=== PATIENT | female | born 1950 | race Caucasian/White ===

== ENCOUNTER 2021-04-28 17:40 | Inpatient (IN) ==
[2021-04-28] MEDS ORDERED: methylPREDNISolone 125 mg 2 ML VIAL IV ONE (18:06)
[2021-04-28] MEDS ORDERED: NS 0.9% 1000 ml BAG 1,000 ML IV ONE (18:06)
[2021-04-28] MEDS ORDERED: Albuterol/Ipratropium NEB.SOL (2.5/0.5 MG) 3 ML NEB.SOLN INH ONE (18:06)
[2021-04-28 18:16] LABS: ABS Basophils 0.1 10^3/ul (0-0.2); ABS Eosinophils 0.2 10^3/ul (0-0.6); ABS Lymphocytes 2.5 10^3/ul (1.0-4.8); ABS Monocytes 0.9 10^3/ul (0-0.8); ABS Neutrophils 8.5 10^3/ul (1.5-7.7); Eosinophil % 1.4 %; Hematocrit 40 % (35-47); Hemoglobin 13.5 g/dL (12.0-16.0); Lymphocyte % 20.6 %; Mean Corpuscular HGB Conc 33 g/dL (31-36); Mean Corpuscular Hemoglobin 28 pg (27-31); Mean Corpuscular Volume 85 fL (80-97); Mean Platelet Volume 6.9 fL (7.4-10.4); Platelet Count 388 10^3/uL (150-450); Red Blood Count 4.78 10^6 /uL (3.70-4.87); Red Cell Distribution Width 13 % (10-15); White Blood Count 12.2 10^3/uL (3.5-10.8)
[2021-04-28] MEDS ORDERED: Labetalol IV 5 MG/ML 20 ml VIAL IV PUSH ONE ×3 (18:19→20:14)
[2021-04-28 18:34] LABS: Albumin/Globulin Ratio 1.4 (1-3); Calcium 9.2 mg/dL (8.6-10.3); EGFR African American 104.4 (>60); EGFR Non-African American 86.3 (>60); Globulin 2.9 g/dL (2-4); Potassium 4.1 mmol/L (3.5-5.0); Total Bilirubin 0.3 mg/dL (0.2-1.0); Total Protein 6.9 g/dL (6.4-8.9)
[2021-04-28 18:35] LABS: Troponin I 0.01 ng/mL (<0.03)
[2021-04-28] MEDS ORDERED: Iohexol 350 (CONTRAST) 500 ML MDV IV ONE (19:06)
[2021-04-28] MEDS ORDERED: Enoxaparin 40 MG/0.4 ML SYR SUBCUT SCH (21:00)
[2021-04-28] MEDS ORDERED: Albuterol/Ipratropium NEB.SOL (2.5/0.5 MG) 3 ML NEB.SOLN INH PRN (21:24)
[2021-04-28] MEDS ORDERED: Labetalol IV 5 MG/ML 20 ml VIAL IV PUSH PRN (21:25)
[2021-04-28 22:49] LABS: Activated Partial Thrombo Time 27.6 seconds (26.0-38.0); INR 1.04 (0.82-1.09)
[2021-04-28 22:58] LABS: Troponin I 0.19 ng/mL (<0.03)
[2021-04-28] MEDS ORDERED: Azithromycin 500 mg/250 mL NS IVPB ONE (23:00)
[2021-04-29 02:18] LABS: Troponin I 0.21 ng/mL (<0.03)
[2021-04-29] MEDS: methylPREDNISolone SOD 40 mg/ml 1 ml VIAL IV SCH ×3 (03:59→20:01)
[2021-04-29] MEDS ORDERED: Enoxaparin 40 MG/0.4 ML SYR SUBCUT SCH (04:00)
[2021-04-29 05:41] LABS: ABS Lymphocytes 0.7 10^3/ul (1.0-4.8); ABS Monocytes 0.1 10^3/ul (0-0.8); ABS Neutrophils 5.3 10^3/ul (1.5-7.7); Hematocrit 38 % (35-47); Hemoglobin 13.1 g/dL (12.0-16.0); Lymphocyte % 10.8 %; Mean Corpuscular HGB Conc 34 g/dL (31-36); Mean Corpuscular Hemoglobin 29 pg (27-31); Mean Corpuscular Volume 85 fL (80-97); Mean Platelet Volume 7.1 fL (7.4-10.4); Platelet Count 368 10^3/uL (150-450); Red Cell Distribution Width 13 % (10-15); White Blood Count 6.1 10^3/uL (3.5-10.8)
[2021-04-29 05:56] LABS: Anion Gap 6 mmol/L (2-11); CO2 Carbon Dioxide 29 mmol/L (22-32); Calcium 8.7 mg/dL (8.6-10.3); Chloride 103 mmol/L (101-111); Potassium 3.9 mmol/L (3.5-5.0); Sodium 138 mmol/L (135-145)
[2021-04-29 06:01] LABS: Blood Urea Nitrogen 8 mg/dL (6-24); EGFR African American 123.3 (>60); EGFR Non-African American 101.9 (>60); Glucose 172 mg/dL (70-100)
[2021-04-29 06:02] LABS: Troponin I 0.22 ng/mL (<0.03)
[2021-04-29 10:19] LABS: Troponin I 0.19 ng/mL (<0.03)
[2021-04-29] MEDS ORDERED: guaiFENesin 100 mg/5 ml LIQ unit dose cup PO PRN (12:30)
[2021-04-30] MEDS: Azithromycin 500 mg/250 ml NS 500 MG/250 ML BAG IVPB SCH (02:49)
[2021-04-30] MEDS: methylPREDNISolone SOD 40 mg/ml 1 ml VIAL IV SCH ×3 (03:59→20:50)
[2021-04-30 06:40] LABS: ABS Lymphocytes 1.1 10^3/ul (1.0-4.8); ABS Monocytes 0.3 10^3/ul (0-0.8); ABS Neutrophils 14.8 10^3/ul (1.5-7.7); Hematocrit 39 % (35-47); Hemoglobin 12.9 g/dL (12.0-16.0); Lymphocyte % 7.1 %; Mean Corpuscular HGB Conc 33 g/dL (31-36); Mean Corpuscular Hemoglobin 28 pg (27-31); Mean Corpuscular Volume 86 fL (80-97); Mean Platelet Volume 7.1 fL (7.4-10.4); Platelet Count 366 10^3/uL (150-450); Red Blood Count 4.55 10^6 /uL (3.70-4.87); Red Cell Distribution Width 13 % (10-15); White Blood Count 16.2 10^3/uL (3.5-10.8)
[2021-04-30 06:54] LABS: Calcium 9.4 mg/dL (8.6-10.3); EGFR African American 97.6 (>60); EGFR Non-African American 80.7 (>60); Potassium 4.2 mmol/L (3.5-5.0)
[2021-04-30] MEDS: Enoxaparin 30 MG/0.3 ML SYR SUBCUT SCH (07:26)
[2021-04-30] MEDS ORDERED: Enoxaparin 40 MG/0.4 ML SYR SUBCUT SCH (09:00)
[2021-04-30 13:34] LABS: Magnesium 2.1 mg/dL (1.9-2.7)
[2021-05-01] MEDS: Azithromycin 500 mg/250 ml NS 500 MG/250 ML BAG IVPB SCH (03:23)
[2021-05-01] MEDS: methylPREDNISolone SOD 40 mg/ml 1 ml VIAL IV SCH ×2 (04:49→14:27)
[2021-05-01] MEDS ORDERED: Lactated Ringers 1000 ml BAG 1,000 ML IV SCH (06:00)
[2021-05-01] MEDS ORDERED: Buffered Lidocaine 1% SYRIN 1 ml INTRADERM ONE (06:00)
[2021-05-01 06:02] LABS: ABS Lymphocytes 0.7 10^3/ul (1.0-4.8); ABS Monocytes 0.3 10^3/ul (0-0.8); Hematocrit 37 % (35-47); Hemoglobin 12.2 g/dL (12.0-16.0); Lymphocyte % 4.7 %; Mean Corpuscular HGB Conc 33 g/dL (31-36); Mean Corpuscular Hemoglobin 28 pg (27-31); Mean Corpuscular Volume 86 fL (80-97); Platelet Count 333 10^3/uL (150-450); Red Blood Count 4.34 10^6 /uL (3.70-4.87); Red Cell Distribution Width 13 % (10-15)
[2021-05-01 06:07] LABS: INR 1.03 (0.82-1.09)
[2021-05-01 07:02] LABS: Calcium 8.9 mg/dL (8.6-10.3); EGFR African American 102.6 (>60); EGFR Non-African American 84.8 (>60); Potassium 4.1 mmol/L (3.5-5.0)
[2021-05-01] MEDS ORDERED: Midazolam 2 mg/2 ml VIAL 1 mg/ml 2 ml VIAL (2 mg) ONE (07:13)
[2021-05-01] MEDS ORDERED: Lidocaine 2% PF 5 ML VIAL ONE (07:13)
[2021-05-01] MEDS ORDERED: fentaNYL 100 mcg/2 ml 50 MCG/ML VIAL ONE (07:13)
[2021-05-01] MEDS ORDERED: Propofol 10 MG/ML 20 ML BTL ONE (07:13)
[2021-05-01] MEDS ORDERED: Rocuronium 50 mg VIAL 10 mg/ml 5 ml VIAL (50 mg) ONE (07:14)
[2021-05-01] MEDS ORDERED: Benzocaine/Butamben/Tetracain (CETACAINE - SINGLE USE) 5 gm TOPICAL ONE (07:17)
[2021-05-01] MEDS ORDERED: EPHEDrine (Pressors) 50 MG/ML VIAL ONE (08:00)
[2021-05-01] MEDS ORDERED: Ondansetron 4 mg VIAL 2 MG/ML 2 ml VIAL ONE (08:00)
[2021-05-01] MEDS ORDERED: Dexamethasone IV 4 MG/ML VIAL 1 ml VIAL ONE (08:00)
[2021-05-01] MEDS ORDERED: Prochlorperazine 5 mg/ml 2 ml VIAL (10 mg) IV PRN (08:31)
[2021-05-01] MEDS ORDERED: diPHENhydraMINE IV 50 MG/ML 1 ml VIAL (BENADRYL) IV PRN (08:31)
[2021-05-01] MEDS ORDERED: Naloxone 0.4 mg VIAL 0.4 mg/ml 1 ml VIAL IV PRN (08:31)
[2021-05-01] MEDS: Enoxaparin 30 MG/0.3 ML SYR SUBCUT SCH (10:02)
[2021-05-01 16:40] VITALS: BP 118/78
== END 2021-05-01 17:14 | disposition home or self-care (01) | DRG 181 ==
LOC: ED 17:40 → MEDTELE 04-29 00:09
PROVIDERS: ADMIT Internal Medicine; ATTEND Student in an Organized Health Care Education/Training Program

== ENCOUNTER 2021-05-27 11:05 | Inpatient (IN) ==
[2021-05-27] MEDS ORDERED: NS 0.9% 1000 ml BAG 1,000 ML IV ONE (11:27)
[2021-05-27] MEDS ORDERED: Iohexol 350 (CONTRAST) 500 ML MDV IV ONE (11:52)
[2021-05-27 12:19] LABS: ABS Lymphocytes 1.5 10^3/ul (1.0-4.8); ABS Monocytes 0.9 10^3/ul (0-0.8); ABS Neutrophils 7.8 10^3/ul (1.5-7.7); Eosinophil % 0.1 %; Hematocrit 45 % (35-47); Hemoglobin 14.8 g/dL (12.0-16.0); Lymphocyte % 14.7 %; Mean Corpuscular HGB Conc 33 g/dL (31-36); Mean Corpuscular Hemoglobin 29 pg (27-31); Mean Corpuscular Volume 87 fL (80-97); Mean Platelet Volume 6.7 fL (7.4-10.4); Platelet Count 436 10^3/uL (150-450); Red Blood Count 5.16 10^6 /uL (3.70-4.87); Red Cell Distribution Width 14 % (10-15); White Blood Count 10.2 10^3/uL (3.5-10.8)
[2021-05-27 12:37] LABS: Albumin 3.4 g/dL (3.2-5.2); Albumin/Globulin Ratio 1.7 (1-3); Calcium 9.2 mg/dL (8.6-10.3); EGFR African American 108.1 (>60); EGFR Non-African American 89.3 (>60); Potassium 3.4 mmol/L (3.5-5.0); Total Bilirubin 0.4 mg/dL (0.2-1.0); Total Protein 5.4 g/dL (6.4-8.9)
[2021-05-27 12:38] LABS: Troponin I 0.01 ng/mL (<0.03)
[2021-05-27] MEDS ORDERED: methylPREDNISolone 125 mg 2 ML VIAL IV ONE (17:03)
[2021-05-27] MEDS ORDERED: Potassium Chlor 20 meq TAB.ER PO ONE (17:04)
[2021-05-27] MEDS ORDERED: Albuterol/Ipratropium NEB.SOL (2.5/0.5 MG) 3 ML NEB.SOLN INH SCH (18:00)
[2021-05-27] MEDS: cefTRIAXone 1 gm/50 mL NS BAG 1 GM/50 ML BAG IVPB SCH (18:26)
[2021-05-27 18:57] LABS: Influenza A Molecular Negative (Negative); Influenza B Molecular Negative (Negative)
[2021-05-27] MEDS ORDERED: Multivitamins ADULT w/MIN LIQ 15 ML UDC PO SCH (19:00)
[2021-05-27] MEDS ORDERED: Vancomycin per Pharmacy 1 EA NOTE FOLLOW UP PRN (19:03)
[2021-05-27] MEDS: Albuterol/Ipratropium NEB.SOL (2.5/0.5 MG) 3 ML NEB.SOLN INH SCH (19:14)
[2021-05-27] MEDS: Enoxaparin 30 MG/0.3 ML SYR SUBCUT SCH (21:33)
[2021-05-27] MEDS: DOXYcycline 100 MG in NS 0.9% 250 ml 250 ML IVPB SCH (21:33)
[2021-05-27] MEDS: Pantoprazole VIAL 40 MG VIAL IV SCH (21:34)
[2021-05-28] MEDS: Albuterol/Ipratropium NEB.SOL (2.5/0.5 MG) 3 ML NEB.SOLN INH SCH ×4 (00:57→19:12)
[2021-05-28] MEDS: methylPREDNISolone SOD 40 mg/ml 1 ml VIAL IV SCH ×3 (02:06→17:36)
[2021-05-28 08:39] LABS: ABS Lymphocytes 0.6 10^3/ul (1.0-4.8); ABS Monocytes 0.1 10^3/ul (0-0.8); ABS Neutrophils 6.8 10^3/ul (1.5-7.7); Hematocrit 46 % (35-47); Hemoglobin 15.1 g/dL (12.0-16.0); Lymphocyte % 7.4 %; Mean Corpuscular HGB Conc 33 g/dL (31-36); Mean Corpuscular Hemoglobin 29 pg (27-31); Mean Corpuscular Volume 87 fL (80-97); Mean Platelet Volume 7.2 fL (7.4-10.4); Nucleated Red Blood Cells % 0.1; Platelet Count 392 10^3/uL (150-450); Red Blood Count 5.26 10^6 /uL (3.70-4.87); Red Cell Distribution Width 14 % (10-15); White Blood Count 7.5 10^3/uL (3.5-10.8)
[2021-05-28] MEDS: Multivitamins/Minerals TAB PO SCH (08:48)
[2021-05-28] MEDS: Pantoprazole VIAL 40 MG VIAL IV SCH ×2 (08:48→21:49)
[2021-05-28] MEDS: DOXYcycline 100 MG in NS 0.9% 250 ml 250 ML IVPB SCH ×2 (08:50→21:49)
[2021-05-28] MEDS ORDERED: TIOTROPIUM BROMIDE INH SCH (09:00)
[2021-05-28] MEDS ORDERED: ACTUATION MIST INH SCH (09:00)
[2021-05-28 09:01] LABS: Calcium 9.4 mg/dL (8.6-10.3); EGFR African American 110.1 (>60); Phosphorus 4.3 mg/dL (2.5-5.0)
[2021-05-28 10:24] LABS: PCO2 Arterial 41 mmHg (35-45); PO2 Arterial 61 mmHg (80-100)
[2021-05-28] MEDS: cefTRIAXone 1 gm/50 mL NS BAG 1 GM/50 ML BAG IVPB SCH (17:35)
[2021-05-28] MEDS: Enoxaparin 30 MG/0.3 ML SYR SUBCUT SCH (21:49)
[2021-05-29] MEDS: methylPREDNISolone SOD 40 mg/ml 1 ml VIAL IV SCH ×3 (01:05→20:49)
[2021-05-29] MEDS: Albuterol/Ipratropium NEB.SOL (2.5/0.5 MG) 3 ML NEB.SOLN INH SCH ×4 (01:22→20:30)
[2021-05-29 05:41] LABS: ABS Basophils 0.1 10^3/ul (0-0.2); ABS Lymphocytes 0.5 10^3/ul (1.0-4.8); ABS Monocytes 0.4 10^3/ul (0-0.8); ABS Neutrophils 17.2 10^3/ul (1.5-7.7); Hematocrit 44 % (35-47); Hemoglobin 14.6 g/dL (12.0-16.0); Lymphocyte % 2.7 %; Mean Corpuscular HGB Conc 33 g/dL (31-36); Mean Corpuscular Hemoglobin 29 pg (27-31); Mean Corpuscular Volume 87 fL (80-97); Mean Platelet Volume 6.8 fL (7.4-10.4); Platelet Count 417 10^3/uL (150-450); Red Cell Distribution Width 14 % (10-15); White Blood Count 18.2 10^3/uL (3.5-10.8)
[2021-05-29 06:02] LABS: Calcium 9.2 mg/dL (8.6-10.3); EGFR African American 114.2 (>60); EGFR Non-African American 94.4 (>60); Magnesium 1.9 mg/dL (1.9-2.7); Phosphorus 3.2 mg/dL (2.5-5.0); Potassium 3.6 mmol/L (3.5-5.0)
[2021-05-29] MEDS ORDERED: Potassium Chlor 20 meq TAB.ER PO ONE (07:51)
[2021-05-29] MEDS: Pantoprazole VIAL 40 MG VIAL IV SCH ×2 (08:10→20:49)
[2021-05-29] MEDS: Multivitamins/Minerals TAB PO SCH (08:10)
[2021-05-29] MEDS: DOXYcycline 100 MG in NS 0.9% 250 ml 250 ML IVPB SCH ×2 (09:23→20:48)
[2021-05-29] MEDS ORDERED: Iohexol 300 (CONTRAST) 10 ML SDV IV ONE (11:11)
[2021-05-29] MEDS: cefTRIAXone 1 gm/50 mL NS BAG 1 GM/50 ML BAG IVPB SCH (17:24)
[2021-05-29] MEDS: Enoxaparin 30 MG/0.3 ML SYR SUBCUT SCH (20:48)
[2021-05-30] MEDS: Albuterol/Ipratropium NEB.SOL (2.5/0.5 MG) 3 ML NEB.SOLN INH SCH ×4 (00:50→20:16)
[2021-05-30 05:58] LABS: ABS Lymphocytes 0.3 10^3/ul (1.0-4.8); ABS Monocytes 0.5 10^3/ul (0-0.8); ABS Neutrophils 14.5 10^3/ul (1.5-7.7); Hematocrit 42 % (35-47); Hemoglobin 13.8 g/dL (12.0-16.0); Lymphocyte % 2.1 %; Mean Corpuscular HGB Conc 33 g/dL (31-36); Mean Corpuscular Hemoglobin 29 pg (27-31); Mean Corpuscular Volume 87 fL (80-97); Platelet Count 384 10^3/uL (150-450); Red Blood Count 4.83 10^6 /uL (3.70-4.87); Red Cell Distribution Width 15 % (10-15); White Blood Count 15.4 10^3/uL (3.5-10.8)
[2021-05-30 06:15] LABS: Calcium 8.7 mg/dL (8.6-10.3); EGFR African American 131.1 (>60); EGFR Non-African American 108.3 (>60); Magnesium 1.9 mg/dL (1.9-2.7); Phosphorus 2.3 mg/dL (2.5-5.0); Potassium 3.6 mmol/L (3.5-5.0)
[2021-05-30] MEDS: Pantoprazole VIAL 40 MG VIAL IV SCH ×2 (10:11→20:04)
[2021-05-30] MEDS: methylPREDNISolone SOD 40 mg/ml 1 ml VIAL IV SCH ×2 (10:11→20:03)
[2021-05-30] MEDS: DOXYcycline 100 MG in NS 0.9% 250 ml 250 ML IVPB SCH ×2 (10:15→21:17)
[2021-05-30] MEDS: Multivitamins/Minerals TAB PO SCH (10:15)
[2021-05-30] MEDS: cefTRIAXone 1 gm/50 mL NS BAG 1 GM/50 ML BAG IVPB SCH (17:57)
[2021-05-30] MEDS: Enoxaparin 30 MG/0.3 ML SYR SUBCUT SCH (20:04)
[2021-05-31] MEDS: Albuterol/Ipratropium NEB.SOL (2.5/0.5 MG) 3 ML NEB.SOLN INH SCH ×4 (00:29→17:33)
[2021-05-31 05:34] LABS: ABS Lymphocytes 0.4 10^3/ul (1.0-4.8); ABS Monocytes 0.5 10^3/ul (0-0.8); ABS Neutrophils 12.8 10^3/ul (1.5-7.7); Hematocrit 43 % (35-47); Hemoglobin 14.2 g/dL (12.0-16.0); Lymphocyte % 3.1 %; Mean Corpuscular HGB Conc 33 g/dL (31-36); Mean Corpuscular Hemoglobin 29 pg (27-31); Mean Corpuscular Volume 87 fL (80-97); Mean Platelet Volume 7.3 fL (7.4-10.4); Platelet Count 336 10^3/uL (150-450); Red Blood Count 4.97 10^6 /uL (3.70-4.87); Red Cell Distribution Width 14 % (10-15); White Blood Count 13.8 10^3/uL (3.5-10.8)
[2021-05-31 05:55] LABS: Calcium 9.2 mg/dL (8.6-10.3); EGFR African American 139.9 (>60); EGFR Non-African American 115.6 (>60); Magnesium 1.9 mg/dL (1.9-2.7); Phosphorus 2.2 mg/dL (2.5-5.0); Potassium 3.7 mmol/L (3.5-5.0)
[2021-05-31] MEDS: DOXYcycline 100 MG in NS 0.9% 250 ml 250 ML IVPB SCH ×2 (09:14→21:32)
[2021-05-31] MEDS: Pantoprazole VIAL 40 MG VIAL IV SCH ×2 (09:15→21:31)
[2021-05-31] MEDS: methylPREDNISolone SOD 40 mg/ml 1 ml VIAL IV SCH ×2 (09:15→21:31)
[2021-05-31] MEDS: Multivitamins/Minerals TAB PO SCH (09:17)
[2021-05-31] MEDS: cefTRIAXone 1 gm/50 mL NS BAG 1 GM/50 ML BAG IVPB SCH (17:26)
[2021-05-31] MEDS: Enoxaparin 30 MG/0.3 ML SYR SUBCUT SCH (21:31)
[2021-06-01] MEDS: Albuterol/Ipratropium NEB.SOL (2.5/0.5 MG) 3 ML NEB.SOLN INH SCH ×4 (01:26→19:35)
[2021-06-01 06:53] LABS: ABS Lymphocytes 0.4 10^3/ul (1.0-4.8); ABS Monocytes 0.5 10^3/ul (0-0.8); ABS Neutrophils 13.1 10^3/ul (1.5-7.7); Hematocrit 46 % (35-47); Hemoglobin 15.2 g/dL (12.0-16.0); Lymphocyte % 2.9 %; Mean Corpuscular HGB Conc 33 g/dL (31-36); Mean Corpuscular Hemoglobin 29 pg (27-31); Mean Corpuscular Volume 87 fL (80-97); Mean Platelet Volume 7.3 fL (7.4-10.4); Platelet Count 346 10^3/uL (150-450); Red Blood Count 5.28 10^6 /uL (3.70-4.87); Red Cell Distribution Width 14 % (10-15); White Blood Count 14.1 10^3/uL (3.5-10.8)
[2021-06-01 07:12] LABS: Calcium 9.1 mg/dL (8.6-10.3); EGFR Non-African American 118.2 (>60); Phosphorus 2.9 mg/dL (2.5-5.0); Potassium 3.8 mmol/L (3.5-5.0)
[2021-06-01] MEDS: Pantoprazole VIAL 40 MG VIAL IV SCH ×2 (08:37→21:05)
[2021-06-01] MEDS: Multivitamins/Minerals TAB PO SCH (08:37)
[2021-06-01] MEDS: methylPREDNISolone SOD 40 mg/ml 1 ml VIAL IV SCH (08:37)
[2021-06-01] MEDS: DOXYcycline 100 MG in NS 0.9% 250 ml 250 ML IVPB SCH ×2 (08:45→21:05)
[2021-06-01] MEDS: cefTRIAXone 1 gm/50 mL NS BAG 1 GM/50 ML BAG IVPB SCH (18:08)
[2021-06-01] MEDS: Enoxaparin 30 MG/0.3 ML SYR SUBCUT SCH (21:05)
[2021-06-02] MEDS: Albuterol/Ipratropium NEB.SOL (2.5/0.5 MG) 3 ML NEB.SOLN INH SCH ×4 (01:37→18:27)
[2021-06-02 05:43] LABS: Hematocrit 49 % (35-47); Hemoglobin 16.2 g/dL (12.0-16.0); Mean Corpuscular HGB Conc 33 g/dL (31-36); Mean Corpuscular Hemoglobin 30 pg (27-31); Mean Corpuscular Volume 88 fL (80-97); Mean Platelet Volume 7.2 fL (7.4-10.4); Platelet Count 290 10^3/uL (150-450); Red Cell Distribution Width 14 % (10-15); White Blood Count 18.9 10^3/uL (3.5-10.8)
[2021-06-02 06:02] LABS: Albumin 3.6 g/dL (3.2-5.2); Albumin/Globulin Ratio 1.6 (1-3); Calcium 9.2 mg/dL (8.6-10.3); EGFR African American 165.3 (>60); EGFR Non-African American 136.6 (>60); Globulin 2.2 g/dL (2-4); Potassium 3.6 mmol/L (3.5-5.0); Total Bilirubin 0.5 mg/dL (0.2-1.0); Total Protein 5.8 g/dL (6.4-8.9)
[2021-06-02 06:06] LABS: ABS Lymphocytes 0.9 10^3/ul (1.0-4.8); Eosinophil % 0.1 %; Lymphocyte % 4.9 %
[2021-06-02] MEDS: DOXYcycline 100 MG in NS 0.9% 250 ml 250 ML IVPB SCH ×2 (09:46→20:11)
[2021-06-02] MEDS: methylPREDNISolone SOD 40 mg/ml 1 ml VIAL IV SCH (09:47)
[2021-06-02] MEDS: Multivitamins/Minerals TAB PO SCH (09:47)
[2021-06-02] MEDS: Pantoprazole VIAL 40 MG VIAL IV SCH ×2 (09:47→20:33)
[2021-06-02] MEDS: cefTRIAXone 1 gm/50 mL NS BAG 1 GM/50 ML BAG IVPB SCH (17:17)
[2021-06-02] MEDS: Enoxaparin 30 MG/0.3 ML SYR SUBCUT SCH (20:10)
[2021-06-03] MEDS: Albuterol/Ipratropium NEB.SOL (2.5/0.5 MG) 3 ML NEB.SOLN INH SCH ×4 (00:29→19:33)
[2021-06-03] MEDS: Pantoprazole VIAL 40 MG VIAL IV SCH ×2 (09:12→20:25)
[2021-06-03] MEDS: Multivitamins/Minerals TAB PO SCH (09:12)
[2021-06-03] MEDS: methylPREDNISolone SOD 40 mg/ml 1 ml VIAL IV SCH (09:12)
[2021-06-03] MEDS: DOXYcycline 100 MG in NS 0.9% 250 ml 250 ML IVPB SCH (09:12)
[2021-06-03] MEDS: Enoxaparin 30 MG/0.3 ML SYR SUBCUT SCH (20:25)
[2021-06-04] MEDS: Albuterol/Ipratropium NEB.SOL (2.5/0.5 MG) 3 ML NEB.SOLN INH SCH ×4 (00:40→19:26)
[2021-06-04] MEDS: methylPREDNISolone SOD 40 mg/ml 1 ml VIAL IV SCH (08:30)
[2021-06-04] MEDS: Multivitamins/Minerals TAB PO SCH (08:30)
[2021-06-04] MEDS: Pantoprazole VIAL 40 MG VIAL IV SCH ×2 (08:30→20:20)
[2021-06-04] MEDS: Enoxaparin 30 MG/0.3 ML SYR SUBCUT SCH (20:20)
[2021-06-05] MEDS: Albuterol/Ipratropium NEB.SOL (2.5/0.5 MG) 3 ML NEB.SOLN INH SCH ×2 (00:32→07:26)
[2021-06-05] MEDS: Pantoprazole VIAL 40 MG VIAL IV SCH (08:56)
[2021-06-05] MEDS: methylPREDNISolone SOD 40 mg/ml 1 ml VIAL IV SCH (08:57)
[2021-06-05] MEDS: Multivitamins/Minerals TAB PO SCH (08:57)
[2021-06-05 13:00] LABS: ABS Lymphocytes 0.3 10^3/ul (1.0-4.8); ABS Monocytes 0.3 10^3/ul (0-0.8); ABS Neutrophils 16.7 10^3/ul (1.5-7.7); Eosinophil % 0.3 %; Hematocrit 44 % (35-47); Hemoglobin 14.3 g/dL (12.0-16.0); Lymphocyte % 1.5 %; Mean Corpuscular HGB Conc 32 g/dL (31-36); Mean Corpuscular Hemoglobin 28 pg (27-31); Mean Corpuscular Volume 88 fL (80-97); Mean Platelet Volume 7.4 fL (7.4-10.4); Platelet Count 264 10^3/uL (150-450); Red Blood Count 5.04 10^6 /uL (3.70-4.87); Red Cell Distribution Width 14 % (10-15); White Blood Count 17.3 10^3/uL (3.5-10.8)
[2021-06-05 13:16] LABS: Albumin 3.5 g/dL (3.2-5.2); Albumin/Globulin Ratio 1.8 (1-3); Calcium 8.8 mg/dL (8.6-10.3); EGFR African American 108.1 (>60); EGFR Non-African American 89.3 (>60); Potassium 4.2 mmol/L (3.5-5.0); Total Bilirubin 0.4 mg/dL (0.2-1.0); Total Protein 5.5 g/dL (6.4-8.9)
[2021-06-05] MEDS: Enoxaparin 30 MG/0.3 ML SYR SUBCUT SCH (20:09)
[2021-06-05] MEDS: Albuterol/Ipratropium NEB.SOL (2.5/0.5 MG) 3 ML NEB.SOLN INH PRN (23:31)
[2021-06-06 09:04] LABS: Hematocrit 43 % (35-47); Hemoglobin 13.9 g/dL (12.0-16.0); Mean Corpuscular HGB Conc 32 g/dL (31-36); Mean Corpuscular Hemoglobin 28 pg (27-31); Mean Corpuscular Volume 87 fL (80-97); Mean Platelet Volume 7.2 fL (7.4-10.4); Platelet Count 229 10^3/uL (150-450); Red Blood Count 4.92 10^6 /uL (3.70-4.87); Red Cell Distribution Width 14 % (10-15); White Blood Count 13.9 10^3/uL (3.5-10.8)
[2021-06-06 09:20] LABS: Albumin 3.4 g/dL (3.2-5.2); Albumin/Globulin Ratio 1.8 (1-3); EGFR African American 161.1 (>60); EGFR Non-African American 133.2 (>60); Globulin 1.9 g/dL (2-4); Potassium 3.8 mmol/L (3.5-5.0); Total Bilirubin 0.5 mg/dL (0.2-1.0); Total Protein 5.3 g/dL (6.4-8.9)
[2021-06-06] MEDS: Multivitamins/Minerals TAB PO SCH (09:37)
[2021-06-06] MEDS: Albuterol/Ipratropium NEB.SOL (2.5/0.5 MG) 3 ML NEB.SOLN INH PRN ×2 (12:47→20:52)
[2021-06-06] MEDS: Enoxaparin 30 MG/0.3 ML SYR SUBCUT SCH (20:00)
[2021-06-07] MEDS: Albuterol/Ipratropium NEB.SOL (2.5/0.5 MG) 3 ML NEB.SOLN INH PRN ×2 (07:57→15:59)
[2021-06-07] MEDS: Multivitamins/Minerals TAB PO SCH (08:53)
[2021-06-07] MEDS ORDERED: Al Hydrox/Mg Hydrox/Simet LIQ 30 ML UDC PO PRN (11:07)
[2021-06-07] MEDS: Carbamide Peroxide 6.5% OTIC 15 ML BTL RIGHT EAR SCH ×2 (12:45→20:15)
[2021-06-07] MEDS: SPIRIVA Respimat (tiotropium) 2.5 mcg/inh Inhaler INH SCH (14:27)
[2021-06-07] MEDS: Albuterol/Ipratropium NEB.SOL (2.5/0.5 MG) 3 ML NEB.SOLN INH SCH (19:38)
[2021-06-07] MEDS: Enoxaparin 30 MG/0.3 ML SYR SUBCUT SCH (20:03)
[2021-06-07] MEDS ORDERED: Calcium Carb (TUMS) 500 mg CHEW TAB PO ONE (20:31)
[2021-06-08] MEDS: Carbamide Peroxide 6.5% OTIC 15 ML BTL RIGHT EAR SCH ×2 (08:50→20:27)
[2021-06-08] MEDS: Multivitamins/Minerals TAB PO SCH (08:50)
[2021-06-08] MEDS: Albuterol/Ipratropium NEB.SOL (2.5/0.5 MG) 3 ML NEB.SOLN INH SCH ×3 (09:28→19:31)
[2021-06-08] MEDS: SPIRIVA Respimat (tiotropium) 2.5 mcg/inh Inhaler INH SCH (09:28)
[2021-06-08] MEDS: Enoxaparin 30 MG/0.3 ML SYR SUBCUT SCH (20:26)
[2021-06-09 06:13] LABS: ABS Eosinophils 0.1 10^3/ul (0-0.6); ABS Lymphocytes 0.6 10^3/ul (1.0-4.8); ABS Monocytes 0.4 10^3/ul (0-0.8); ABS Neutrophils 6.7 10^3/ul (1.5-7.7); Eosinophil % 0.8 %; Hematocrit 36 % (35-47); Hemoglobin 11.9 g/dL (12.0-16.0); Lymphocyte % 7.5 %; Mean Corpuscular HGB Conc 33 g/dL (31-36); Mean Corpuscular Hemoglobin 29 pg (27-31); Mean Corpuscular Volume 87 fL (80-97); Mean Platelet Volume 7.4 fL (7.4-10.4); Platelet Count 175 10^3/uL (150-450); Red Blood Count 4.11 10^6 /uL (3.70-4.87); Red Cell Distribution Width 14 % (10-15); White Blood Count 7.8 10^3/uL (3.5-10.8)
[2021-06-09 06:57] LABS: Calcium 8.3 mg/dL (8.6-10.3); Potassium 4.1 mmol/L (3.5-5.0)
[2021-06-09 07:03] LABS: EGFR African American 169.6 (>60); EGFR Non-African American 140.2 (>60)
[2021-06-09] MEDS: Albuterol/Ipratropium NEB.SOL (2.5/0.5 MG) 3 ML NEB.SOLN INH SCH ×3 (07:09→19:19)
[2021-06-09] MEDS: SPIRIVA Respimat (tiotropium) 2.5 mcg/inh Inhaler INH SCH (07:10)
[2021-06-09] MEDS: Multivitamins/Minerals TAB PO SCH (08:30)
[2021-06-09] MEDS: Carbamide Peroxide 6.5% OTIC 15 ML BTL RIGHT EAR SCH ×2 (08:31→19:49)
[2021-06-09] MEDS: Enoxaparin 30 MG/0.3 ML SYR SUBCUT SCH (19:47)
[2021-06-10] MEDS: SPIRIVA Respimat (tiotropium) 2.5 mcg/inh Inhaler INH SCH (06:59)
[2021-06-10] MEDS: Albuterol/Ipratropium NEB.SOL (2.5/0.5 MG) 3 ML NEB.SOLN INH SCH ×3 (06:59→19:14)
[2021-06-10] MEDS: Carbamide Peroxide 6.5% OTIC 15 ML BTL RIGHT EAR SCH ×2 (09:33→21:21)
[2021-06-10] MEDS: Multivitamins/Minerals TAB PO SCH (09:33)
[2021-06-10] MEDS: Enoxaparin 30 MG/0.3 ML SYR SUBCUT SCH (21:22)
[2021-06-11 05:31] LABS: Hematocrit 33 % (35-47); Hemoglobin 10.9 g/dL (12.0-16.0); Mean Corpuscular HGB Conc 34 g/dL (31-36); Mean Corpuscular Hemoglobin 29 pg (27-31); Mean Corpuscular Volume 87 fL (80-97); Mean Platelet Volume 7.1 fL (7.4-10.4); Platelet Count 180 10^3/uL (150-450); Red Blood Count 3.75 10^6 /uL (3.70-4.87); Red Cell Distribution Width 14 % (10-15); White Blood Count 6.6 10^3/uL (3.5-10.8)
[2021-06-11] MEDS: SPIRIVA Respimat (tiotropium) 2.5 mcg/inh Inhaler INH SCH (07:07)
[2021-06-11] MEDS: Albuterol/Ipratropium NEB.SOL (2.5/0.5 MG) 3 ML NEB.SOLN INH SCH ×2 (07:07→11:42)
[2021-06-11] MEDS: Carbamide Peroxide 6.5% OTIC 15 ML BTL RIGHT EAR SCH (09:34)
[2021-06-11] MEDS: Multivitamins/Minerals TAB PO SCH (09:34)
[2021-06-11 12:35] VITALS: BP 103/53
== END 2021-06-11 15:00 | DRG 189 ==
LOC: ED 11:05 → ICU 17:21 → MEDTELE 05-29 10:58 → MED 06-05 22:56
PROVIDERS: ADMIT Internal Medicine; ATTEND Internal Medicine Hematology & Oncology

== ENCOUNTER 2023-05-30 13:41 | Inpatient (IN) ==
[2023-05-30 14:36] LABS: ABS Basophils 0.1 10^3/uL (0.0-0.1); ABS Lymphocytes 0.8 10^3/uL (1.0-4.8); ABS Nucleated RBC 0.01 10^3/ul; Albumin 3.6 g/dL (3.2-5.2); Albumin/Globulin Ratio 1.8 (1-3); Creatinine, Serum 0.81 mg/dL (0.51-0.95); Eosinophil % 0.6 %; Hematocrit 32.7 % (35-45); Hemoglobin 10.9 g/dL (11.5-14.3); Lymphocyte % 15.4 %; Mean Corpuscular Hemoglobin 28.8 pg (27-33); Mean Corpuscular Hgb Conc 33.2 g/dL (31-36); Mean Corpuscular Volume 86.8 fL (80-97); Nucleated Red Blood Cells % 0.2 /100 WBC (0.0-0.4); Platelet Count 173 10^3/uL (150-450); Potassium 4.4 mmol/L (3.5-5.0); Red Blood Count 3.77 10^6/uL (3.63-4.92); Red Cell Distribution Width 16.9 % (12-17); Total Bilirubin 0.4 mg/dL (0.2-1.0); Total Protein 5.6 g/dL (6.4-8.9); White Blood Count 4.9 10^3/uL (3.8-11.8); eGFR CKD-EPI 75.7 (>60)
[2023-05-30] MEDS ORDERED: Morphine 2 MG/ML SYRINGE ONE ×2 (14:50→17:04)
[2023-05-30] MEDS ORDERED: metroNIDAZOLE IV 500 MG/100ML 500 MG/100 ML BAG IVPB SCH (17:00)
[2023-05-30] MEDS ORDERED: Ciprofloxacin 400mg IVPREMIX 400 MG/200 ML BAG IVPB SCH (17:00)
[2023-05-30] MEDS: Morphine 2 MG/ML SYRINGE IV PRN (17:29)
[2023-05-30] MEDS: methylPREDNISolone SOD SUCC 40 mg/ml 1 ml VIAL IV SCH (20:18)
[2023-05-30] MEDS: metroNIDAZOLE IV 500 MG/100ML 500 MG/100 ML BAG IVPB SCH (20:20)
[2023-05-30] MEDS ORDERED: Albuterol/Ipratropium NEB.SOL (2.5/0.5 MG) 3 ML NEB.SOLN INH PRN (20:34)
[2023-05-30] MEDS ORDERED: Albuterol HFA INHALER 8 gm MDI INH PRN (20:34)
[2023-05-31] MEDS: NS 0.9% 1000 ml BAG 1,000 ML IV SCH ×2 (00:33→15:48)
[2023-05-31] MEDS: metroNIDAZOLE IV 500 MG/100ML 500 MG/100 ML BAG IVPB SCH ×3 (02:41→19:19)
[2023-05-31] MEDS: Ciprofloxacin 400mg IVPREMIX 400 MG/200 ML BAG IVPB SCH ×2 (05:30→17:14)
[2023-05-31 05:42] LABS: ABS Lymphocytes 0.5 10^3/uL (1.0-4.8); ABS Neutrophils 2.1 10^3/uL (1.5-7.6); ABS Nucleated RBC 0.01 10^3/ul; Eosinophil % 0.1 %; Hematocrit 33.6 % (35-45); Lymphocyte % 17.4 %; Mean Corpuscular Hemoglobin 28.3 pg (27-33); Mean Corpuscular Hgb Conc 32.9 g/dL (31-36); Mean Corpuscular Volume 86.1 fL (80-97); Mean Platelet Volume 7.2 fL (7.5-11.2); Nucleated Red Blood Cells % 0.3 /100 WBC (0.0-0.4); Platelet Count 141 10^3/uL (150-450); Red Cell Distribution Width 16.3 % (12-17); White Blood Count 2.6 10^3/uL (3.8-11.8)
[2023-05-31 06:54] LABS: Albumin 3.3 g/dL (3.2-5.2); Albumin/Globulin Ratio 1.9 (1-3); Calcium 8.1 mg/dL (8.6-10.3); Creatinine, Serum 0.48 mg/dL (0.51-0.95); Globulin 1.7 g/dL (2-4); Magnesium 1.7 mg/dL (1.9-2.7); Potassium 4.3 mmol/L (3.5-5.0); Total Bilirubin 0.5 mg/dL (0.2-1.0); eGFR CKD-EPI 98.7 (>60)
[2023-05-31] MEDS: SPIRIVA Respimat (tiotropium) 2.5 mcg/inh Inhaler INH SCH (07:27)
[2023-05-31] MEDS: methylPREDNISolone SOD SUCC 40 mg/ml 1 ml VIAL IV SCH (08:34)
[2023-05-31] MEDS: Morphine 2 MG/ML SYRINGE IV PRN ×2 (09:52→17:18)
[2023-06-01] MEDS: metroNIDAZOLE IV 500 MG/100ML 500 MG/100 ML BAG IVPB SCH ×3 (03:04→20:03)
[2023-06-01] MEDS: Ciprofloxacin 400mg IVPREMIX 400 MG/200 ML BAG IVPB SCH ×2 (05:31→18:20)
[2023-06-01] MEDS: Morphine 2 MG/ML SYRINGE IV PRN (05:35)
[2023-06-01 05:51] LABS: Hematocrit 29.9 % (35-45); Mean Corpuscular Hemoglobin 28.9 pg (27-33); Mean Corpuscular Hgb Conc 33.3 g/dL (31-36); Mean Corpuscular Volume 86.8 fL (80-97); Mean Platelet Volume 7.3 fL (7.5-11.2); Platelet Count 154 10^3/uL (150-450); Red Blood Count 3.45 10^6/uL (3.63-4.92); Red Cell Distribution Width 16.2 % (12-17); White Blood Count 1.2 10^3/uL (3.8-11.8)
[2023-06-01 06:11] LABS: Calcium 8.2 mg/dL (8.6-10.3); Creatinine, Serum 0.61 mg/dL (0.51-0.95); Magnesium 1.7 mg/dL (1.9-2.7); Potassium 4.5 mmol/L (3.5-5.0); eGFR CKD-EPI 93.2 (>60)
[2023-06-01] MEDS: SPIRIVA Respimat (tiotropium) 2.5 mcg/inh Inhaler INH SCH (07:15)
[2023-06-01 07:30] LABS: ABS Lymphocytes 0.6 10^3/uL (1.0-4.8); ABS Monocytes 0.1 10^3/uL (0.0-0.9); ABS Neutrophils 0.5 10^3/uL (1.5-7.6); Eosinophil % 0.4 %; Lymphocyte % 48.8 %; Nucleated Red Blood Cells % 0.1 /100 WBC (0.0-0.4)
[2023-06-01] MEDS ORDERED: Magnesium Sulfate IV 1GM/100ML 1 GM/100 ML BAG IV ONE (08:24)
[2023-06-01] MEDS: methylPREDNISolone SOD SUCC 40 mg/ml 1 ml VIAL IV SCH (09:48)
[2023-06-01] MEDS: Multivitamins/Minerals TAB PO SCH (09:50)
[2023-06-01] MEDS: NS 0.9% 1000 ml BAG 1,000 ML IV SCH ×2 (09:52→23:20)
[2023-06-01] MEDS: oxyCODONE/Acetamin 5/325 mg TAB PO PRN ×3 (09:58→20:21)
[2023-06-02] MEDS: NS 0.9% 1000 ml BAG 1,000 ML IV SCH (00:57)
[2023-06-02] MEDS: metroNIDAZOLE IV 500 MG/100ML 500 MG/100 ML BAG IVPB SCH ×2 (01:51→11:26)
[2023-06-02] MEDS: oxyCODONE/Acetamin 5/325 mg TAB PO PRN ×4 (05:37→17:47)
[2023-06-02] MEDS: Ciprofloxacin 400mg IVPREMIX 400 MG/200 ML BAG IVPB SCH (05:37)
[2023-06-02] MEDS: Morphine 2 MG/ML SYRINGE IV PRN ×2 (05:53→17:48)
[2023-06-02 06:10] LABS: Hemoglobin 11.4 g/dL (11.5-14.3); Mean Corpuscular Hemoglobin 28.4 pg (27-33); Mean Corpuscular Hgb Conc 33.4 g/dL (31-36); Mean Corpuscular Volume 85.1 fL (80-97); Mean Platelet Volume 7.6 fL (7.5-11.2); Platelet Count 181 10^3/uL (150-450); Red Cell Distribution Width 16.2 % (12-17); White Blood Count 1.2 10^3/uL (3.8-11.8)
[2023-06-02 06:15] LABS: ABS Lymphocytes 0.6 10^3/uL (1.0-4.8); ABS Monocytes 0.3 10^3/uL (0.0-0.9); ABS Neutrophils 0.3 10^3/uL (1.5-7.6); ABS Nucleated RBC 0.01 10^3/ul; Eosinophil % 0.1 %; Lymphocyte % 48.1 %; Nucleated Red Blood Cells % 0.5 /100 WBC (0.0-0.4)
[2023-06-02] MEDS: SPIRIVA Respimat (tiotropium) 2.5 mcg/inh Inhaler INH SCH (09:09)
[2023-06-02] MEDS: Multivitamins/Minerals TAB PO SCH (09:23)
[2023-06-02] MEDS: methylPREDNISolone SOD SUCC 40 mg/ml 1 ml VIAL IV SCH (09:24)
[2023-06-02] MEDS: Morphine ER 15 mg TAB ** extended release PO SCH ×2 (11:25→20:26)
[2023-06-03] MEDS: Morphine 2 MG/ML SYRINGE IV PRN (02:54)
[2023-06-03 05:19] LABS: Hematocrit 31.8 % (35-45); Hemoglobin 10.7 g/dL (11.5-14.3); Mean Corpuscular Hemoglobin 28.8 pg (27-33); Mean Corpuscular Hgb Conc 33.5 g/dL (31-36); Mean Corpuscular Volume 85.9 fL (80-97); Mean Platelet Volume 7.2 fL (7.5-11.2); Platelet Count 164 10^3/uL (150-450); Red Blood Count 3.71 10^6/uL (3.63-4.92); Red Cell Distribution Width 16.2 % (12-17); White Blood Count 1.2 10^3/uL (3.8-11.8)
[2023-06-03 05:55] LABS: RBC Morphology Normal (Normal)
[2023-06-03 05:56] LABS: ABS Lymphocytes 0.6 10^3/uL (1.0-4.8); ABS Monocytes 0.4 10^3/uL (0.0-0.9); ABS Neutrophils 0.2 10^3/uL (1.5-7.6); Eosinophil % 0.1 %; Lymphocyte % 45.1 %; Nucleated Red Blood Cells % 0.3 /100 WBC (0.0-0.4)
[2023-06-03 05:58] LABS: Calcium 8.1 mg/dL (8.6-10.3); Creatinine, Serum 0.61 mg/dL (0.51-0.95); Potassium 3.7 mmol/L (3.5-5.0); eGFR CKD-EPI 93.2 (>60)
[2023-06-03] MEDS: oxyCODONE/Acetamin 5/325 mg TAB PO PRN (06:06)
[2023-06-03] MEDS: SPIRIVA Respimat (tiotropium) 2.5 mcg/inh Inhaler INH SCH (08:00)
[2023-06-03] MEDS: Multivitamins/Minerals TAB PO SCH (10:00)
[2023-06-03] MEDS: Morphine ER 15 mg TAB ** extended release PO SCH (10:01)
[2023-06-03 10:24] VITALS: BP 138/77
== END 2023-06-03 13:50 | disposition home or self-care (01) | DRG 392 ==
LOC: CHOA 13:41 → MED 18:16 → INTOOBSV 18:16 → SUATTDRO 18:16
PROVIDERS: ADMIT Internal Medicine Hematology & Oncology; ATTEND Internal Medicine

== ENCOUNTER 2023-08-01 00:34 | Inpatient (IN) ==
[2023-08-01] MEDS ORDERED: Dexamethasone IV 4 MG/ML VIAL 1 ml VIAL IV SLOW PU ONE (00:48)
[2023-08-01] MEDS ORDERED: Albuterol/Ipratropium NEB.SOL (2.5/0.5 MG) 3 ML NEB.SOLN INH ONE (00:48)
[2023-08-01 02:02] LABS: ABS Eosinophils 0.1 10^3/uL (0.0-0.5); ABS Lymphocytes 0.9 10^3/uL (1.0-4.8); ABS Monocytes 0.4 10^3/uL (0.0-0.9); ABS Neutrophils 9.5 10^3/uL (1.5-7.6); Eosinophil % 0.6 %; Hematocrit 29.4 % (35-45); Hemoglobin 9.7 g/dL (11.5-14.3); Lymphocyte % 8.2 %; Mean Corpuscular Hemoglobin 29.8 pg (27-33); Mean Corpuscular Volume 90.4 fL (80-97); Platelet Count 209 10^3/uL (150-450); Red Blood Count 3.25 10^6/uL (3.63-4.92); Red Cell Distribution Width 18.1 % (12-17); White Blood Count 10.8 10^3/uL (3.8-11.8)
[2023-08-01 02:12] LABS: Activated Partial Thrombo Time 25.2 seconds (26.0-38.0); INR 1.02 (0.83-1.13)
[2023-08-01 02:23] LABS: Albumin 3.1 g/dL (3.2-5.2); Albumin/Globulin Ratio 1.6 (1-3); Calcium 8.8 mg/dL (8.6-10.3); Creatinine, Serum 0.46 mg/dL (0.51-0.95); Magnesium 1.6 mg/dL (1.9-2.7); Potassium 3.7 mmol/L (3.5-5.0); Total Bilirubin 0.5 mg/dL (0.2-1.0); Total Protein 5.1 g/dL (6.4-8.9); eGFR CKD-EPI 99.7 (>60)
[2023-08-01] MEDS ORDERED: Iohexol 350 (CONTRAST) 500 ML MDV IV ONE (02:43)
[2023-08-01 03:59] LABS: High Sensitivity Troponin 1 Hr 15 pg/mL (<15)
[2023-08-01] MEDS ORDERED: Albuterol HFA INHALER 8 gm MDI INH PRN ×2 (06:10→17:48)
[2023-08-01] MEDS: Albuterol/Ipratropium NEB.SOL (2.5/0.5 MG) 3 ML NEB.SOLN INH SCH ×4 (06:57→19:18)
[2023-08-01] MEDS ORDERED: TIOTROPIUM BROMIDE INH SCH (09:00)
[2023-08-01] MEDS ORDERED: ACTUATION MIST INH SCH (09:00)
[2023-08-01] MEDS ORDERED: Azithromycin 500 mg/250 ml NS 500 MG/250 ML BAG IVPB SCH (09:00)
[2023-08-01] MEDS ORDERED: Magnesium Sulf 4 GM/100 ML IV 4,000 MG/100 ML BAG IVPB ONE (09:01)
[2023-08-01] MEDS ORDERED: cefTRIAXone 1 gm/50 mL D5W 1 GM/50 ML BAG IV SCH (09:15)
[2023-08-01 10:03] LABS: Urine Appearance Clear; Urine Bilirubin Negative (Negative); Urine Blood 2+ (Negative); Urine Color Yellow; Urine Glucose Negative (Negative); Urine Ketones 1+ (Negative); Urine Nitrite Negative (Negative); Urine Protein Negative (Negative); Urine Specific Gravity 1.043 (1.002-1.030); Urine Urobilinogen Negative (Negative)
[2023-08-01 10:08] LABS: Urine Bacteria Absent (Absent); Urine Red Blood Cell Trace(0-2/hpf) (Absent); Urine Squamous Epithelial Cell Present (Absent); Urine White Blood Cell Trace(0-5/hpf) (Absent); Urine Yeast Present (Absent)
[2023-08-01] MEDS ORDERED: Polyethylene Glycol 3350 17 GM PACKET PO PRN (12:20)
[2023-08-01] MEDS ORDERED: Lorazepam PYXIS KEY PRN (12:32)
[2023-08-01] MEDS ORDERED: Heparin 5000 UNITS/ML 1 mL VIAL SUBCUT SCH (14:00)
[2023-08-01] MEDS: Morphine 2 MG/ML SYRINGE IV PRN (16:49)
[2023-08-01 23:44] VITALS: BP 174/99
[2023-08-02] MEDS: Morphine 2 MG/ML SYRINGE IV PRN ×2 (01:29→05:29)
[2023-08-02] MEDS: LORazepam 2 mg VIAL 1 ml IV PUSH PRN ×3 (04:06→20:28)
[2023-08-02] MEDS: Albuterol/Ipratropium NEB.SOL (2.5/0.5 MG) 3 ML NEB.SOLN INH SCH ×2 (06:30→12:22)
[2023-08-02] MEDS: cefTRIAXone 1 gm/50 mL D5W 1 GM/50 ML BAG IV SCH (09:46)
[2023-08-02] MEDS: Azithromycin 500 mg/250 ml NS 500 MG/250 ML BAG IVPB SCH (10:44)
[2023-08-02] MEDS ORDERED: Albuterol/Ipratropium NEB.SOL (2.5/0.5 MG) 3 ML NEB.SOLN INH PRN (12:23)
[2023-08-03] MEDS: Morphine 2 MG/ML SYRINGE IV PRN ×4 (01:09→19:22)
[2023-08-03] MEDS: cefTRIAXone 1 gm/50 mL D5W 1 GM/50 ML BAG IV SCH (10:17)
[2023-08-03] MEDS: Azithromycin 500 mg/250 ml NS 500 MG/250 ML BAG IVPB SCH (11:27)
[2023-08-03] MEDS: LORazepam 2 mg VIAL 1 ml IV PUSH PRN ×2 (13:39→20:29)
[2023-08-04] MEDS: Morphine 2 MG/ML SYRINGE IV PRN ×3 (00:37→10:52)
[2023-08-04] MEDS: LORazepam 2 mg VIAL 1 ml IV PUSH PRN ×2 (06:27→10:52)
[2023-08-04] MEDS: cefTRIAXone 1 gm/50 mL D5W 1 GM/50 ML BAG IV SCH (09:13)
== END 2023-08-04 11:12 | disposition hospice, home (50) | DRG 871 ==
LOC: ED 00:34 → EDHOLD 06:03 → SUATTDRO 06:03 → EDHOLD 10:47 → MED 22:29
PROVIDERS: ADMIT Internal Medicine; ATTEND Hospitalist